=== PATIENT | female | born 1970 | race Caucasian/White ===

== ENCOUNTER 2016-11-19 20:45 | Emergency (ER) | payer MEDICAID ==
[2015-12-12 07:07] VITALS: BMI 45.9
[~2016-11-19 20:45] MED LIST: ACCUPRIL5 MG PO; ADVAIR 250/501 DISK INH; DOXYCYCLINE HY100 M2 PO; GLUCOPHAGE1000 MG PO; HUMALOG MIX 50/53 ML SC; INDERAL10 MG PO; LANTUS SOL100 UNIT/1 SC; LIPITOR40 MG PO; NORCO 7.5/325 T1 TA1 PO; OXYCODONE HCL5 MG PO; PRILOSEC10 MG PO; STERAPRED 5MG 125 MG PO; VICTOZA0.6 MG/0.1 SQ
== END 2016-11-20 01:05 | disposition home or self-care (01) ==
LOC: D.ER 20:45
DX: S20.462A Insect bite (nonvenomous) of left back wall of thorax, initial encounter (principal); W57.XXXA Bitten or stung by nonvenomous insect and other nonvenomous arthropods, initial encounter; Y93.89 Activity, other specified; Y92.89 Other specified places as the place of occurrence of the external cause; E11.9 Type 2 diabetes mellitus without complications; Z79.4 Long term (current) use of insulin; E78.5 Hyperlipidemia, unspecified; K21.9 Gastro-esophageal reflux disease without esophagitis

== ENCOUNTER → 2017-12-10 16:19 | Outpatient (CLI) | payer MEDICAID ==
[2015-12-12 07:07] VITALS: BMI 45.9
== END | disposition home or self-care (01) ==
LOC: D.RAD 16:19
DX: J01.90 Acute sinusitis, unspecified (principal)

== ENCOUNTER 2018-01-18 20:02 | Emergency (ER) | payer MEDICAID ==
[2015-12-12 07:07] VITALS: BMI 45.9
== END 2018-01-18 20:47 | disposition home or self-care (01) ==
LOC: D.ER 20:02
DX: S81.811A Laceration without foreign body, right lower leg, initial encounter (principal); W26.0XXA Contact with knife, initial encounter; Y93.G3 Activity, cooking and baking; Y92.010 Kitchen of single-family (private) house as the place of occurrence of the external cause; E11.9 Type 2 diabetes mellitus without complications; Z79.4 Long term (current) use of insulin; K21.9 Gastro-esophageal reflux disease without esophagitis

== ENCOUNTER 2019-03-03 19:03 | Emergency (ER) | payer MEDICAID ==
[~2019-03-03] VITALS: Ht 167.6 cm; Wt 110.0 kg
[2019-03-03 19:14] VITALS: Ht 167.6 cm; Wt 110.0 kg
[2019-03-03] MEDS ORDERED: TOPROL XL25 MG PO (19:17)
[2019-03-03] MEDS ORDERED: JARDIANCE25 MG PO (19:19)
[2019-03-03 20:14] LABS: BASOPHILS 0.4 % (0-2); EOSINOPHILS 2.2 % (0-7); HEMATOCRIT 38.8 % (36.0-48.0); HEMOGLOBIN 11.3 g/dL (12-16); IMMATURE GRANULOCYTES 0.2 % (0-5); LYMPHOCYTES 23.9 % (15-50); MCH 21.5 pg (26.0-34.0); MCHC 29.1 g/dL (31.0-37.0); MCV 73.8 fL (80.0-100.0); MEAN PLATELET VOLUME 10.3 fL (7.4-10.4); MONOCYTES 9.3 % (2-11); PLATELET COUNT 206 10x3/uL (130-400); RBC 5.26 10x6/uL (4.00-5.40); RDW 18.4 % (11.5-14.5); WBC 5.5 10x3/uL (4.8-10.8)
[2019-03-03 20:30] LABS: ALBUMIN 3.7 g/dL (3.4-5.0); ANION GAP 12.9 mmol/L (8-16); BILIRUBIN - TOTAL 0.19 mg/dL (0.2-1.3); CALCIUM 8.7 mg/dL (8.5-10.1); CARBON DIOXIDE 25.9 mmol/L (21.0-32.0); POTASSIUM - SERUM 3.8 mmol/L (3.5-5.1); PROTEIN - SERUM 7.6 g/dL (6.4-8.2)
[2019-03-03 20:50] LABS: APPEARANCE CLEAR (CLEAR); COLOR YELLOW (YELLOW); NITRITE NEGATIVE (NEGATIVE); PROTEIN NEGATIVE (NEGATIVE); SPECIFIC GRAVITY 1.015 (1.005-1.020)
[2019-03-03 20:51] LABS: BILIRUBIN NEGATIVE (NEGATIVE); GLUCOSE 1000 mg/dL (NEGATIVE); KETONE NEGATIVE (NEGATIVE); UROBILINOGEN NORMAL (NORMAL)
[2019-03-03] MEDS ORDERED: NAPROSYN500 MG PO (21:44)
[2019-03-03 21:45] VITALS: BP 129/82
== END 2019-03-03 21:50 | disposition home or self-care (01) ==
LOC: D.ER 19:03
PROVIDERS: Family Medicine
DX: M54.31 Sciatica, right side (principal); M51.37 Other intervertebral disc degeneration, lumbosacral region

== ENCOUNTER 2019-03-17 11:00 | Outpatient (CLI) | payer MEDICAID ==
[2019-03-03 19:14] VITALS: BMI 39.1
[~2019-03-17 11:00] MED LIST changes: +JARDIANCE25 MG PO; +NAPROSYN500 MG PO; +TOPROL XL25 MG PO
== END 2019-03-17 11:30 | disposition home or self-care (01) ==
LOC: D.MAMMO 11:00
PROVIDERS: ATTEND Family Medicine
DX: Z12.31 Encounter for screening mammogram for malignant neoplasm of breast (principal)